=== PATIENT | male | born 1965 | race Caucasian/White ===

== ENCOUNTER → 2018-10-31 | Day surgery (SDC) | payer OTHER ==
[2018-10-30 15:30] LABS: BASOPHILS # (AUTO) 0.1 (0.0-0.1); EOSINOPHILS # (AUTO) 0.2 (0.0-0.4); EOSINOPHILS % 3.6 % (0.0-6.0); HEMATOCRIT 37.4 % (38.2-49.6); HEMOGLOBIN 12.2 g/dL (14.0-18.0); LYMPHOCYTES # (AUTO) 1.3 (1.0-3.2); LYMPHOCYTES % 22.1 % (18.0-39.1); MEAN CORPUSCULAR HEMOGLOBIN 29.5 pg (28-32); MEAN CORPUSCULAR HGB CONC 32.6 g/dL (31-35); MEAN CORPUSCULAR VOLUME 90.6 fL (81-99); MONOCYTES # (AUTO) 0.5 (0.2-0.8); MONOCYTES % 7.8 % (4.4-11.3); NEUTROPHILS # (AUTO) 3.8 (2.1-6.9); NEUTROPHILS % 65.2 % (38.7-80.0); PLATELET COUNT 227 x10e3/uL (140-360); RED BLOOD COUNT 4.13 x10e6/uL (4.3-5.7); RED CELL DISTRIBUTION WIDTH 14.4 % (11.7-14.4)
[2018-10-30 15:42] LABS: INR 0.92; PARTIAL THROMBOPLASTIN TIME 29.3 seconds (23.8-35.5); PROTHROMBIN TIME 12.9 seconds (11.9-14.5)
[2018-10-30 15:49] LABS: ALANINE AMINOTRANSFERASE 24 IU/L (0-55); ALBUMIN 4.2 g/dL (3.5-5.0); ALBUMIN/GLOBULIN RATIO 1.5 (0.8-2.0); ALKALINE PHOSPHATASE 53 IU/L (40-150); ANION GAP 16.8 mmol/L (8-16); BLOOD UREA NITROGEN 16 mg/dL (7-26); BUN/CREATININE RATIO 14 (6-25); CALCIUM 9.8 mg/dL (8.4-10.2); CARBON DIOXIDE 24 mmol/L (22-29); CHLORIDE 101 mmol/L (98-107); CREATININE, SERUM 1.17 mg/dL (0.72-1.25); EST GLOMERULAR FILTRATION RATE > 60 ML/MIN (60-); GLUCOSE 223 mg/dL (74-118); POTASSIUM 3.8 mmol/L (3.5-5.1); SODIUM 138 mmol/L (136-145)
--- NOTE | 2018-10-30 16:26 | Diagnostic Imaging Report ---
EXAMINATION: CHEST 2 VIEWS INDICATION: Preop COMPARISON: None FINDINGS: TUBES and LINES: None. LUNGS: Lungs are well inflated. There is no evidence of pneumonia or pulmonary edema. PLEURA: No pleural effusion or pneumothorax. HEART AND MEDIASTINUM: The cardiomediastinal silhouette is unremarkable. BONES AND SOFT TISSUES: No acute fracture or dislocation. Soft tissues are unremarkable. UPPER ABDOMEN: No free air under the diaphragm. IMPRESSION: Clear lungs. Signed by: Santa Alves MD on 10/30/2018 4:23 PM
[~2018-10-31] MED LIST: AUGMENTIN 500-1 EACH PO; BENICAR20 MG PO; DESFLURANE 240 ML BTL INH ONE; DEXAMETHASONE SOD PHOS 10 MG/1 ML VIAL ONE; EPHEDRINE SULFATE INJ 50 MG/10 ML SYR ONE; FENTANYL CITRATE/PF 100MCG/2 ML INJ ONE; FLOMAX0.4 MG PO; FLUTICASONE PRO16 GM INH; GABAPENTIN300 MG PO; GLYCOPYRROLATE INJ 1MG/ 5 ML SYR ONE; IBUPROFEN 800MG/ 250ML 250 ML IV ONE; LIDOCAINE HCL 2% LOCAL INJ 5 ML SDV VIAL INJ ONE; METFORMIN HCL850 MG PO; MIDAZOLAM HCL 2 MG/2 ML VIAL ONE; NEOSTIGMINE 5 MG/5ML SYR ONE; PHENYLEPHRINE HCL 1% 10 MG/ML VIAL ONE; PRISTIQ ER50 MG PO; PROPOFOL IV EMULSION 10 MG/ML 20 ML VIAL ONE; ROCURONIUM BROMIDE 10 MG/ML 5ML VIAL ONE
--- OUTSIDE RECORDS SUMMARY | 2018-10-31 07:12 | XMS REPORT | Clinical Summary ---
Author Author [facility] [place] [facility] Address Unknown Phone Unavailable Care Team Providers Care Aged Or Disabled Care Worker Name Role Phone Melissa Cummings MD PCP Allergies No Known Allergies Medications End Date Status Medication Sig Dispensed Refills Start Date Active fluticasone propionate USE ONE SPRAY 1 (FLONASE) 50 INTO EACH 9 mcg/actuation nasal spray NOSTRIL ONCE DAILY Active gabapentin (NEURONTIN) Take 300 mg 2 300 mg capsule by mouth 9 every evening. Active loratadine (CLARITIN) 10 Take 10 mg by 0 mg tablet mouth daily. 9 Active metFORMIN (GLUCOPHAGE) Take 850 mg 1 850 mg tablet by mouth 3 9 (three) times a day. Active naproxen (NAPROSYN) 500 Take 500 mg 0 MG tablet by mouth 2 9 (two) times a day as needed. Active linagliptin (TRADJENTA) 5 Take 5 mg by 0 mg tablet mouth daily. Active xrfeagkt-gevogrwmy-EH Administer 1 0 (CORTISPORIN) drop into the 3.5-10,000-1 left ear 2 mg/mL-unit/mL-% otic (two) times a suspension day. STARTED 08-15- X 14 DAYS Active simvastatin (ZOCOR) 80 MG Take 80 mg by 0 tablet mouth nightly. Active aspirin (ECOTRIN) 81 MG Take 81 mg by 0 enteric coated tablet mouth daily. Active metoprolol tartrate Take 50 mg by 0 (LOPRESSOR) 50 mg tablet mouth 2 (two) times a day. Active desvenlafaxine (PRISTIQ) Take 100 mg 0 100 MG 24 hr tablet by mouth daily. Active amoxicillin-pot Take 1 tablet 0 clavulanate (AUGMENTIN) by mouth 2 875-125 mg per tablet (two) times a day. STARTED 08-19-19 X 7 DAYS 08/24/2018 Discontinued amoxicillin-pot Take 1 tablet 0 clavulanate (AUGMENTIN) by mouth 2 9 875-125 mg per tablet (two) times a day. 08/24/2018 Discontinued glipiZIDE (GLUCOTROL) 10 0 MG tablet 9 08/24/2018 Discontinued kwculvce-rauhbwuwx-HJ INSTILL ONE 0 (CORTISPORIN) DROP INTO 9 3.5-10,000-1 LEFT EAR mg/mL-unit/mL-% otic TWICE DAILY suspension FOR 14 DAYS 08/24/2018 Discontinued simvastatin (ZOCOR) 80 MG TAKE 1 TABLET 0 tablet BY MOUTH 9 Active Problems Not on file Encounters Care Team Description Date Type Specialty Emery Aguilar MD Near syncope (Primary Dx); Complication of anesthesia, initial encounter 08/24/2018 Emergency Emergency Medicine after 10/30/2017 Social History Date Tobacco Use Types Packs/Day Years Used Never Smoker Smokeless Tobacco: Never Used Alcohol Use Drinks/Week oz/Week Comments No Alcohol Habits Answer Date Recorded How often do you have a drink containing alcohol? Never 08/24/2018 How many drinks containing alcohol do you have on Not asked a typical day when you are drinking? How often do you have six or more drinks on one Not asked occasion? Sex Assigned at Date Recorded Not on file Industry Job Start Date Occupation Not on file Not on file Not on file Travel End Travel History Travel Start No recent travel history available. Last Filed Vital Signs Time Taken Vital Sign Reading 08/24/2018 11:30 AM CDT Blood Pressure 101/66 08/24/2018 11:30 AM CDT Pulse 72 08/24/2018 11:30 AM CDT Temperature 36.9 C (98.5 F) 08/24/2018 11:30 AM CDT Respiratory Rate 20 08/24/2018 11:30 AM CDT Oxygen Saturation 94% - Inhaled Oxygen - Concentration - Weight - - Height - - Body Mass Index - Plan of Treatment Health Maintenance Due Date Last Done Comments COLONOSCOPY SCREENING 2013 SHINGLES VACCINES (#1) 2013 INFLUENZA VACCINE 11/30/2018 Procedures Comments Procedure Name Priority Date/Time Associated Diagnosis XR CHEST 1 VW PORTABLE STAT 08/24/2018 10:34 AM CDT ECG 12-LEAD STAT 08/24/2018 10:08 AM CDT ESTIMATED GFR Routine 08/24/2018 10:07 AM CDT B NATRIURETIC PEPTIDE Routine 08/24/2018 10:07 AM CDT TROPONIN Routine 08/24/2018 10:07 AM CDT COMPREHENSIVE METABOLIC Routine 08/24/2018 PANEL 10:07 AM CDT PROTHROMBIN TIME WITH INR Routine 08/24/2018 10:07 AM CDT HC COMPLETE BLD COUNT Routine 08/24/2018 W/AUTO DIFF 10:07 AM CDT ECG ED PRELIMINARY Routine 08/24/2018 INTERPRETATION 10:00 AM CDT after 10/30/2017 Results * XR Chest 1 Vw Portable (08/24/2018 10:34 AM CDT) Specimen Narrative Performed At EXAMINATION:XR CHEST 1 VW PORTABLE [facility] CLINICAL HISTORY:chest pain COMPARISON:11/16/2015 IMPRESSION: The lungs and pleural spaces are clear.The cardiomediastinal silhouette is within normal limits.There is no significant skeletal finding. [id number] Procedure Note Hm Interface, Radiology Results Incoming - 08/24/2018 10:40 AM CDT EXAMINATION: XR CHEST 1 VW PORTABLE CLINICAL HISTORY: chest pain COMPARISON: 11/16/2015 IMPRESSION: The lungs and pleural spaces are clear. The cardiomediastinal silhouette is within normal limits. There is no significant skeletal finding. [id number] Performing Organization Address City/State/Zipcode Phone Number [facility] [address] [place] [address] * ECG 12 lead (08/24/2018 10:08 AM CDT) Ventricular 66 [facility] rate Atrial rate 66 [facility] GA interval 180 [facility] QRSD interval 86 [facility] QT interval 384 [facility] QTC interval 402 [facility] P axis 1 29 [facility] QRS axis 1 26 [facility] T wave axis -6 [facility] EKG impression Normal sinus rhythm-Low [facility] voltage QRS-Borderline ECG-In automated comparison with ECG of 16-NOV-2015 19:38,-No significant change was found- Specimen Narrative Performed At Performing Organization Address City/State/Zipcode Phone Number [facility] [address] [place] [address] * Estimated GFR (08/24/2018 10:07 AM CDT) Pathologist [facility] Estimated GFR >=90 mL/min/1.73 m2 [place] Comment: [facility] G1 >=90 Normal or high G2 60-89Mildly decreased [id number] Mildly to moderately decreased Z5y37-62 Moderately to severely decreased G4 15-29Severely decreased G5 <15Kidney failure The eGFR was calculated using the Chronic Kidney Disease Epidemiology Collaboration (CKD-EPI) equation. Interpretation is based on recommendations of the National Kidney Foundation-Kidney Disease Outcomes Quality Initiative (NKF-KDOQI) published in 2014. Specimen Plasma specimen Performing Organization Address City/[facility]/Zipcode Phone Number [facility] [address] * Troponin (08/24/2018 10:07 AM CDT) [facility] Troponin <0.30 0.00 - 0.30 ng/mL [place] Comment: [facility] 0.11 - 1.49 [facility] indicate increased risk of acute coronary syndrome. >=1.5 ng/ml Consistent with acute myocardial infarction. The diagnostic value of a single normal or non-diagnostic result is questionable.Serial samples at 2-6 hour intervals are required to rule out acute myocardial injury. Specimen Plasma specimen Performing Organization Address City/State/Zipcode Phone Number [facility] [address] * Prothrombin time with INR (08/24/2018 10:07 AM CDT) Prothrombin 12.6 11.5 - 14.5 sec [facility] INR 0.97 [place] Comment: TISHA GARG For patients on anticoagulant ADALI therapy, reference ranges HOSPITAL below: Indication: INR Value Treatment of Venous Thrombosis, 2.0-3.0 pulmonary emboli, or prophylaxis of a venous thrombosis, or systemic emboli. High dose, high risk patients 3.0-4.5 with mechanical valves. NOTE:INR values over 3.0 are sometimes associated with gastrointestinal hemorrhage, especially values over 4.0. Specimen Blood Performing Organization Address City/State/Zipcode Phone Number [facility] [address] [place] [address] PATHOLOGY AND GENOMIC MEDICINE [facility] [address] * CBC with platelet and differential (08/24/2018 10:07 AM CDT) WBC 4.4 4.2 - 11.0 k/uL [facility] RBC 4.52 4.04 - 5.86 m/uL [facility] HGB 13.2 13.0 - 17.3 g/dL [facility] HCT 41.6 34.0 - 45.0 % [facility] MCV 92.0 80.0 - 98.0 fL [facility] MCH 29.2 27.0 - 34.0 pg [facility] MCHC 31.7 31.5 - 36.5 g/dL [facility] RDW - SD 45.4 37.0 - 51.0 fL [facility] MPV 10.6 (H) 7.4 - 10.4 fL [facility] Platelet count 222 150 - 400 k/uL [facility] Nucleated RBC 0.00 /100 WBC [facility] Neutrophils 55.7 36.0 - 66.0 % [facility] Lymphocytes 26.9 24.0 - 44.0 % [facility] Monocytes 10.9 (H) 0.0 - 6.0 % [facility] Eosinophils 3.9 0.0 - 6.0 % [facility] Basophils 2.1 (H) 0.0 - 1.2 % [facility] Immature 0.5 0.0 - 1.0 % [place] granulocytes [facility] Specimen Blood Performing Organization Address City/State/Zipcode Phone Number [facility] [place] [address] PATHOLOGY AND GENOMIC MEDICINE [address] * B natriuretic peptide (08/24/2018 10:07 AM CDT) [facility] BNP 3 0 - 100 pg/mL [facility] Specimen Blood Performing Organization Address City/[facility] [place] [address] PATHOLOGY AND GENOMIC MEDICINE [address] * Comprehensive metabolic panel (08/24/2018 10:07 AM CDT) [facility] Sodium 140 135 - 150 mEq/L [facility] Potassium 4.5 3.5 - 5.0 mEq/L [facility] Chloride 104 98 - 112 mEq/L [facility] CO2 22 (L) 24 - 31 mmol/L [facility] Anion gap 14@ANIO 7 - 15 mEq/L [facility] BUN 19 (H) 7 - 18 mg/dL [facility] Creatinine 0.80 0.70 - 1.20 mg/dL [facility] Glucose 117 (H) 65 - 100 mg/dL [facility] Calcium 9.6 8.3 - 10.2 mg/dL [facility] Protein 7.4 6.3 - 8.3 g/dL [facility] Albumin 4.1 3.5 - 5.0 g/dL [facility] A/G ratio 1.2 0.7 - 3.8 [facility] Alkaline 58 0 - 129 U/L [place] phosphatase [facility] AST 19 10 - 50 U/L [facility] ALT 21 5 - 50 U/L [facility] Total bilirubin <0.3 0.2 - 1.2 mg/dL [facility] Specimen Plasma specimen Performing Organization Address City/State/Zipcode Phone Number [facility] [place] [address] [place] [address] PATHOLOGY AND GENOMIC MEDICINE [place] [address] [facility] [place], [place] [id number] [place] [address] * ECG ED Preliminary Interpretation - Not an Order (08/24/2018 10:00 AM CDT) Narrative Performed At Emery Aguilar MD 08/24/2018 10:52 AM ECG ED Preliminary Interpretation - Not an Order Performed by: Emery Aguilar MD Authorized by: Emery Aguilar MD ECG reviewed by ED Physician in the absence of a senior telecommunications specialist: yes Previous ECG: Previous ECG:Compared to current Interpretation: Interpretation: normal Rate: ECG rate:66 ECG rate assessment: normal Rhythm: Rhythm: sinus rhythm Ectopy: Ectopy: none QRS: QRS axis:Normal Conduction: Conduction: normal ST segments: ST segments:Normal T waves: T waves: normal after 10/30/2017 Insurance Type Payer Benefit Subscriber ID Effective Phone Address Plan / Dates Group HMO AETNA AETNA xxxxxxxxxx 2018- HMO,POS,EP Present O, MC/EC Advance Directives Patient has advance care planning documents on file. For more information, timothy ott contact: [facility] [address] [place] [address]
--- OUTSIDE RECORDS SUMMARY | 2018-10-31 07:13 | XMS REPORT ---
Author Author [facility] Address Unknown Phone Unavailable Care Team Providers Care Quality Assurance Technician Name Role Phone Milagro ALLISON Unavailable Unavailable Problems This patient has no known problems. Allergies, Adverse Reactions, Alerts This patient has no known allergies or adverse reactions. Medications This patient has no known medications. Results Test Description Test Time Test Comments Text Results Atomic Results Result Comments CHEST 2 VIEWS 2018-10-30 16:18:00 [place] [address] Patient Name: LOUISE ONEAL MR #: [id number] : 1965 Age/Sex: 53/M Req #: [id number] Adm Physician: Ordered by: TIM ALLISON MD Report #: [id number] Location: OR Room/Bed: Procedure: [id number] DX/CHEST 2 VIEWS Exam Date: 10/30/18 Exam Time: 1517 REPORT STATUS: Signed EXAMINATION: CHEST 2 VIEWS INDICATION: Preop COM PARISON: None FINDINGS: TUBES and LINES: None. LUNGS: Lungs are well inflated. There is no evidence of pneumonia or pulmonary edema. PLEURA: No pleural effusion or pneumothorax. HEART AND MEDIASTINUM: The cardiomediastinal silhouette is unremarkable. BONES AND SOFT TISSUES: No acute fracture or dislocation. Soft tissues are unremarkable. UPPER ABDOMEN: No free air under the diaphragm. IMPRESSION: Clear lungs. Signed by: Deepti Alves MD on 10/30/2018 4:23 PM Dictated By: DEEPTI ALVES MD 1620 Transcribed By: ARTIE on 10/30/18 1625 COPY TO: TIM ALLISON MD
--- NOTE | 2018-10-31 11:48 | Operative Report ---
DATE OF PROCEDURE: 10/31/2018 SURGEON: Chase Godfrey MD CHIEF COMPLAINT: Lesion in the left anterior neck. POSTOPERATIVE DIAGNOSIS: Lesion in the left anterior neck. OPERATIVE PROCEDURE: Direct laryngoscopy, rigid esophagoscopy, rigid bronchoscopy, biopsy of the left tongue base, excisional biopsy of left anterior neck mass with appropriate closure. DIP PAINTER: Renetta Iverson. ANESTHESIA: Anesthesiology group. HISTORY OF PRESENT ILLNESS: This 53-year-old male was noted to have a lesion in the left anterior neck for more than six months. The lesion is increasing in size. The patient is a nonsmoker, nondrinker. CT scan of the neck without contrast was ordered by Dr. Cummings, which showed a calcified lesion anterior to the digastric muscle, no other lymphadenopathy was noted. The submandibular gland was noted to be normal. It was decided that panendoscopy, biopsy and excisional biopsy of the lesion in the left anterior neck and other necessary procedure will be beneficial for him. DESCRIPTION OF PROCEDURE: The patient was taken to the operating room, put under general anesthesia, endotracheally intubated. Neck was prepped and draped in a sterile fashion. The skin incision was marked out about two fingerbreadths from the margin of the mandible in the anterior portion of the neck. The area was injected with 1% Xylocaine with 1:100,000 epinephrine for hemostasis. Dissection was carried down to the level of the digastric muscle. The anterior edge of the digastric muscle was identified and this was retracted medially. The dissection of the tissue noted that the mass came into view. The lesion was dissected out and sent for permanent section. Closure of the area was undertaken. The area was irrigated with copious amount of normal saline, any bleeding area was controlled using bipolar cautery. A quarter-inch Kristian drain was inserted in the wound. The deep layer of the incision was closed using 3-0 Vicryl suture in interrupted fashion. The skin incision was closed using 4-0 Prolene suture in interrupted fashion. The [place] drain was sutured in place. A pressure dressing was applied. The panendoscopy was performed. The patient was repositioned. The rigid esophagoscopy was performed. The esophagoscope was passed through the cricopharyngeus muscle, no abnormality was noted. The esophagoscope was retrieved. The rigid bronchoscopy was performed. A size #4 bronchoscope with Tidwell wire was used. The bronchoscope was passed via the endotracheal tube, endotracheal tube cuff was deflated, trachea was examined down to the kelley, no abnormality was noted. The bronchoscope was retrieved, endotracheal tube cuff was reinflated. The direct laryngoscopy was performed. The Dedo laryngoscope was used. The oropharynx and oral cavity were examined. Increase lymphoid tissue was noted in the tongue base on the left side, this was biopsied using a cup forceps. The larynx both the true and false vocal folds were examined and no abnormality was noted. Piriform sinus on either side was examined and no abnormality was noted. The patient tolerated the above procedure well with minimal blood loss. He was given 20 mg of Decadron intraoperatively. The patient was able to be transferred to recovery room in stable condition. MD KIRAN RodriguezH/MODL /[id number]
[2018-10-31 12:35] VITALS: BP 126/72
--- NOTE | 2018-11-06 03:09 | Pre Op History & Physical ---
DATE OF SURGERY: October 31, 2018. CHIEF COMPLAINT: Left neck mass. HISTORY OF PRESENT ILLNESS: This 53-year-old male was noted to have a lesion in the left neck area for about 8 months. The lesion has been increasing in size. The patient denies any dysphagia, odynophagia, or shortness of breath. He had no contact with any cats or rabbits. He had no foreign travel. The patient denies any TB contact. A CT scan of the neck without contrast showed that the patient has a lesion about 1 x 2 cm, which is calcified just anterior to the left anterior digastric muscle just inferior to the angle of the mandible. REVIEW OF SYSTEMS: System review showed no recent cardiovascular, respiratory, or GI problem. PAST MEDICAL HISTORY: The patient has a history of hypertension and type 2 diabetes. PAST SURGICAL HISTORY: The patient had a previous tonsillectomy, appendectomy, umbilical hernia repair, and hemorrhoidectomy. ALLERGIES: HE HAS NO KNOWN ALLERGY TO MEDICATION. MEDICATIONS: As per medicine list. SOCIAL HISTORY: He is a nonsmoker, nondrinker. FAMILY HISTORY: Noncontributory. PHYSICAL EXAMINATION: VITAL SIGNS: On examination, the patient's vital signs were within normal limits. HEENT: Ear exam showed normal tympanic membrane bilaterally. Nasal exam showed deviated nasal septum on the right side about 30%. Oropharynx and oral cavity showed no tonsils with Mallampati level 3. NECK: Showed a lesion in the left neck in the digastric triangle about 2 x 2 cm. No other lymph node or thyroid was palpable. CHEST: Showed good air entry bilaterally. CARDIOVASCULAR: Showed S1 and S2. No murmur noted. ASSESSMENT AND PLAN: Mr. Wu has left neck mass for the past 8 months, which is increasing in size. Suggested treatment is panendoscopy, excisional biopsy, and other necessary procedure. The complication of procedure includes, but not limited to bleeding, infection, perforation of the esophagus, pneumomediastinum, immediate sinusitis, airway compromise, facial nerve injury, hypoglossal nerve injury, wound breakdown, orocutaneous fistula, persistent recurrence of the lesion. The alternative will be continued observation, fine-needle aspiration of the area. The patient has elected to undergo surgical procedure. MD KIRAN Rodriguez/MODL /[id number] cc: Melissa Cummings MD
== END | disposition home or self-care (01) ==
LOC: OR 06:29
PROVIDERS: ATTEND Otolaryngology Otolaryngology/Facial Plastic Surgery
DX: M53.82 Other specified dorsopathies, cervical region (principal); I10 Essential (primary) hypertension; E11.9 Type 2 diabetes mellitus without complications; G47.33 Obstructive sleep apnea (adult) (pediatric); F41.9 Anxiety disorder, unspecified; Z01.810 Encounter for preprocedural cardiovascular examination; Z01.812 Encounter for preprocedural laboratory examination; Z01.818 Encounter for other preprocedural examination; Z79.84 Long term (current) use of oral hypoglycemic drugs
CPT/HCPCS: 21556; 31535; 31622; 36415; 43191; 71046; 80053; 85025; 85610; 85730; 88305; 88311; 93005; J1100; J2001; J2250; J2370; J2704; J3490; 88304; J3010